=== PATIENT | male | born 1960 | race Caucasian/White ===

== ENCOUNTER 2017-05-15 15:17 | Inpatient (IN) | payer BC, OTHER ==
[~2017-05-15] VITALS: Ht 185.4 cm; Wt 68.0 kg
[2017-05-15] MEDS ORDERED: CLONIDINE HCL 0.1 MG TABLET PO PRN (15:45)
[2017-05-15] MEDS ORDERED: MAG HYDROX/AL HYDROX/SIMETH 30 ML LIQUID UDC PO PRN (15:45)
[2017-05-15] MEDS ORDERED: LORAZEPAM 1 MG TABLET PO PRN (15:45)
[2017-05-15] MEDS ORDERED: MIRALAX 17 GM POWD.PACK PO PRN (15:45)
[2017-05-15] MEDS ORDERED: MAGNESIUM HYDROXIDE 30 ML LIQUID UDC PO PRN (15:45)
[2017-05-15] MEDS ORDERED: IBUPROFEN 600 MG TABLET PO PRN (15:45)
[2017-05-15] MEDS ORDERED: ONDANSETRON 4 MG/2 ML VIAL IM PRN (15:45)
[2017-05-15] MEDS ORDERED: LORAZEPAM 2 MG/1 ML VIAL IM PRN (15:45)
[2017-05-15] MEDS ORDERED: DICYCLOMINE HCL 20 MG TABLET PO PRN (15:45)
[2017-05-15] MEDS ORDERED: LOPERAMIDE HCL 2 MG CAPSULE PO PRN ×2 (15:45)
[2017-05-15] MEDS ORDERED: METHOCARBAMOL 750 MG TABLET PO PRN (15:45)
--- NOTE | 2017-05-15 15:45 | NUR ---
PRE ADMISSION: PATIENT MET IN INTAKE OFFICE SITTING IN WHEEL CHAIR. VITAL SIGNS 146/70, HR 75 O2 97% T 98 PATIENT STATES THAT HE IS HERE TO DETOX FROM HYDROMORPHONE AFTER BATTLING RENAL CANCER FOR THE PAST 3 YEARS HE HAS BECOME DEPENDENT ON IT AND NEEDS TO DETOX. HOME MEDICATION TAKEN FROM PATIENT AND INFORMED PATIENT THAT ANY CONTROLLED SUBSTANCES WOULD BE DESTROYED BY PHARMACY, PATIENT COMPLIANT WITH THIS PROCEDURE AND UNDERSTANDS. WILL CONTINUE ASSESSMENT WHEN PATIENT ARRIVES ON FLOOR.
--- NOTE | 2017-05-15 16:50 | NUR ---
ADMISSION NOTE PATIENT IS A 56 YR OLD MALE ADMITTED TO [facility] ON 05/15/17 FOR A MEDICALLY SUPERVISED WITHDRAWAL FROM OPIATES AND BENZODIAZEPINES. PATIENT IS ALLERGIC TO SULFA, PSEUDOEPHEDRINE AND CANTALOUPE . PATIENT HAS A PAST MEDICAL HISTORY OF METASTATIC RENAL CARCINOMA DIAGNOSED 3 YEARS AGO WITH SURGICAL REMOVAL OF LEFT KIDNEY AND PARTIAL RIGHT PELVIS. PATIENT STATES THAT HE HAS BECOME ADDICTED TO THE HYDROMORPHONE THAT WAS PRESCRIBED TO HIM DURING THIS TIME, PATIENT ALSO SAYS HE HAS BECOME DEPENDENT ON DIAZEPAM AND NEEDS IT TO FALL ASLEEP AT NIGHT. ABUSE HISTORY : ALCOHOL ( WINE ) 1-2 GLASSES / DAY FOR PAST 20 + YEARS DIAZEPAM 2-4 MG PO/DAY FOR PAST 3 YEARS HYDROMORPHONE 24-32 MG PO / DAY FOR PAST 3 YEARS PATIENT APPEARS INTOXICATED UPON ASSESSMENT, HIS SPEECH IS SLURRED AND SEEMS DROWSY, HIS MOOD IS ANXIOUS AND FLAT. ADMITTING COWS 8 AND CIWA 10. PATIENT STATES " I WANT TO TRY TO CONTROL THE AMOUNT OF PAIN MEDS I TAKE OR ELIMINATE THEM ALTOGETHER ". THIS IS THE PATIENTS FIRST TIME IN TREATMENT. HE HAS NO HISTORY OF SEIZURES BUT DOES HAVE A HISTORY OF ACCIDENTAL OVERDOSES. HE HAS NO HISTORY OF SI/HI WILL CONTINUE TO FOLLOW MD PLAN OF CARE.
[2017-05-15 18:36] LABS: ALANINE AMINOTRANSFERASE 31 U/L (16-63); ALKALINE PHOSPHATASE 73 U/L (50-136); ASPARTATE AMINOTRANSFERASE 33 U/L (15-37); BILIRUBIN,TOTAL 0.3 mg/dL (0.2-1.0); CARBON DIOXIDE 28 mmol/L (21-32); CHLORIDE 103 mmol/L (98-107); GLUCOSE 119 mg/dL (74-106); MAGNESIUM 1.9 mg/dL (1.8-2.4); TOTAL PROTEIN, SERUM 6.9 g/dL (6.4-8.2); UREA NITROGEN, BLOOD 12 mg/dL (7-18)
[2017-05-15 18:41] LABS: ETHANOL < 3 MG/DL (0-0)
[2017-05-15] MEDS ORDERED: LACT10SO PO (18:43)
[2017-05-15] MEDS ORDERED: LEVO5TAB29 PO (18:43)
[2017-05-15 18:44] LABS: BASOPHILS % (AUTO) 0.6 % (0.0-2.0); EOSINOPHILS # (AUTO) 0.1 K/uL (0.0-0.7); EOSINOPHILS % (AUTO) 2.2 % (0.0-7.0); HEMATOCRIT 34.4 % (36.7-47.1); HEMOGLOBIN 11.4 g/dL (12.5-16.3); LYMPHOCYTES % (AUTO) 18.5 % (20.5-51.5); MEAN CORPUSCULAR HEMOGLOBIN 29.9 uug (23.8-33.4); MEAN CORPUSCULAR HGB CONC 33 g/dL (32.5-36.3); MONOCYTES # (AUTO) 0.4 K/uL (2.0-10.0); MONOCYTES % (AUTO) 8.2 % (0.0-11.0); NEUTROPHILS # (AUTO) 3.7 K/uL (1.8-8.9); NEUTROPHILS % (AUTO) 70.5 % (38.5-71.5); PLATELET COUNT (AUTO) 306 K/uL (152-348); RED BLOOD CELL COUNT(AUTO) 3.82 MIL/uL (4.06-5.63); WHITE BLOOD COUNT (AUTO) 5.2 K/uL (3.6-10.2)
--- NOTE | 2017-05-15 19:30 | NUR ---
Start of Shift Pt is a 56 y/o admitted 05/15/17 for medically managed withdrawal/detox from Hydromorphone, Diazepam, and ETOH. Pt is found in bed, semi-Fowlers position, eating dinner, appears and acts much older than stated age. Eye contact avoidant, speech unclear at times. On 1:1 observation as fall precaution. Pt with unsteady gait, wheelchair and assist required. Pt fair historian on health status. U/A to be collected p dinner. 2100 meds/PRN's reviewed. Will continue to monitor and promtly attend to all pt needs
--- NOTE | 2017-05-15 19:31 | NUR ---
END OF SHIFT : PATIENT WAS ADMITTED TODAY 05/15/17 FOR A MEDICALLY SUPERVISED WITHDRAWAL FROM ALCOHOL/ BENZOS AND OPIATES. PATIENT HAS A HISTORY OF METASTATIC RENAL CANCER THAT INVOLVED LEFT KIDNEY REMOVAL AND RIGHT PELVIS SURGERY. HE IS HERE HE BECAME ADDICTED TO HYDROMORPHONE THAT HE WAS TAKING TO DEAL WITH THE PAIN. PATIENT HAS UNSTEADY GAIT AND MD ORDERED 1:1 FOR PATIENT SAFETY. URINE SPECIMEN HAS NOT BEEN PROVIDED YET BY PATIENT . PATIENT ARRIVED ON THE UNIT AT 1700, FLUID INTAKE OF 800ML , 0 VOIDS AND 0 BM. ADMITTING COWS 8 AND CIWA 10. WILL ENDORSE TO NIGHT NURSE, FOLLOW MD PLAN OF CARE.
[2017-05-15 20:00] VITALS: BP 126/73
[2017-05-15 20:54] LABS: *AMPHETAMINE, URINE NEGATIVE (NEGATIVE); *BARBITURATE, URINE NEGATIVE (NEGATIVE); *CANNABINOID, URINE NEGATIVE (NEGATIVE); *COCCAINE, URINE NEGATIVE (NEGATIVE); *OPIATE, URINE POSITIVE (NEGATIVE); *PHENCYCLIDINE SCREEN,URINE NEGATIVE (NEGATIVE)
[2017-05-15] MEDS ORDERED: ENOXAPARIN SODIUM 40 MG/0.4 ML DISP.SYRIN SQ SCH (21:00)
[2017-05-15] MEDS: ENOXAPARIN 60 MG/0.6 ML SQ SCH ×2 (21:00→21:12)
[2017-05-15] MEDS ORDERED: BUPRENORPHINE HCL 2 MG TAB.SUBL SL PRN (21:00)
--- NOTE | 2017-05-15 21:00 | NUR ---
Lovenox 60mg SQ non adminter Lovenox 60mg SQ not administered due to syringe malfunction. Pharmacy/Dough Brake Machine Operator contacted by CN and Lovenox 30mg SQ x 2 ordered and given as replacement.
[2017-05-15] MEDS: GABAPENTIN 300 MG CAPSULE PO SCH (21:14)
[2017-05-15] MEDS: KETOROLAC TROMETHAMINE 30 MG INJ IM PRN (21:14)
[2017-05-15] MEDS: LORAZEPAM 1 MG TABLET PO PRN (21:14)
--- NOTE | 2017-05-15 21:14 | NUR ---
PRN Meds Ativan 1mg PO for CIWA 10, and Toradol 30mg IM given for 7/10 mouth pain. Will continue to monitor and reassess in 1 hour, promptly attending to all needs.
[2017-05-15] MEDS ORDERED: ENOXAPARIN SODIUM 60 MG/0.6 ML DISP.SYRIN SQ ONE (21:30)
[2017-05-15] MEDS ORDERED: ENOXAPARIN SODIUM 30 MG/0.3 ML DISP.SYRIN SQ ONE (21:30)
--- NOTE | 2017-05-15 22:14 | NUR ---
PRN Med Reassessment Ativan 1mg PO for CIWA 10, and Toradol 30mg IM given 2113 for left lower mouth pain. Pt found sleeping, RR 14 even and non labored. Meds effective. Will continue to monitor and promptly attend to all needs
--- NOTE | 2017-05-16 | NUR ---
VS's/COWS/CIWA Deferred VS's and COWS/CIWA deferred r/t pt sleeping/refused. RR 14 even and non labored. Will continue to monitor and promptly attend to all needs.
[2017-05-16 04:00] VITALS: BP 126/73
[2017-05-16] MEDS: ACETAMINOPHEN 325 MG TABLET PO PRN ×2 (04:31→08:44)
--- NOTE | 2017-05-16 04:31 | NUR ---
PRN Med Tylenol 650mg PO given for leg pain/cramps. Will continue to monitor pt and reassess in 1 hour, promptly attending to all pt needs
--- NOTE | 2017-05-16 05:31 | NUR ---
PRN Med Reassessment Tylenol 650mg PO given for mouth and leg pain ineffective per pt. Administering other pain med
[2017-05-16] MEDS: KETOROLAC TROMETHAMINE 30 MG INJ IM PRN ×2 (05:35→11:29)
--- NOTE | 2017-05-16 05:35 | NUR ---
PRN Med Toradol 30mg IM to left deltoid for leg pain, 5/10, and right lower mouth pain 9/10. Will continue to monitor pt and reassess in 30 minutes, promptly attending to all needs
--- NOTE | 2017-05-16 06:05 | NUR ---
PRN Med Reassessment Toradol 30mg IM effective. Pt found sleeping, RR 14, even and non-labored. Will continue to monitor and give endorsement to oncoming day nurse, promptly attending to all needs.
--- NOTE | 2017-05-16 06:55 | NUR ---
End of Shift4 Pt is a 56 y/o admitted 05/15/17 for medically managed withdrawal/detox from Hydromorphone, Diazepam, and ETOH. PRN's for shift include Ativan 1mg PO for CIWA of 10, and Toradol 30mg IM to R deltoid for Right lower mouth pain. Pt requesting pain med at 0430 for leg pain, given Tylenol 650mg PO. Tylenol ineffective, Toradol 30mg IM given 0535 for leg pain 5/10, and right lower mouth pain 9/10. Pt slept for 8 hours, with 1096 mls intake, 2 voids, and 0 BM's. Will continue to monitor pt until morning endorsement, promptly attending to all needs.
--- NOTE | 2017-05-16 07:10 | NUR ---
START OF SHIFT PATIENT IS A 56 YR OLD MALE ADMITTED TO [facility] ON 05/15/17 FOR A MEDICALLY SUPERVISED DETOXIFICATION FROM ALCOHOL, BENZODIAZEPINES AND OPIATES. PATIENT IS ON A 1:1 FOR UNSTEADY GAIT AND SAFETY. PRN MEDS REQUIRED ON PM SHIFT : TYLENOL, TORADOL X 2 AND ATIVAN. LAST COWS 10 AND CIWA 10. PATIENT IS ASLEEP IN BED AT THIS TIME WITH SITTER AT BEDSIDE, BREATHING EVEN AND UNLABORED WITH BED IN LOW LOCKED POSITION WITH SIDE RAILS UP X 2. WILL CONTINUE TO FOLLOW MD PLAN OF CARE.
[2017-05-16 08:00] VITALS: BP 128/83
[2017-05-16] MEDS: LORAZEPAM 1 MG TABLET PO PRN ×3 (08:25→20:46)
[2017-05-16] MEDS: MULTIVITAMINS,THERAPEUTIC TABLET PO SCH (08:25)
[2017-05-16] MEDS: THIAMINE HCL 100 MG TABLET PO SCH (08:25)
--- NOTE | 2017-05-16 08:25 | NUR ---
PRN ATIVAN 1 MG PO GIVEN FOR CIWA 11 AND ANXIETY, WILL REASSESS
[2017-05-16] MEDS: FOLIC ACID 1 MG TABLET PO SCH (08:26)
[2017-05-16] MEDS: GABAPENTIN 300 MG CAPSULE PO SCH ×3 (08:26→20:46)
--- NOTE | 2017-05-16 08:45 | NUR ---
TUBERCULIN SKIN TEST PLACED LEFT FOREARM
--- NOTE | 2017-05-16 08:45 | NUR ---
PRN TYLENOL TYLENOL 650MG PO GIVEN FOR PATIENTS COMPLAINTS OF ORAL PAIN 07/18, WILL CONTINUE TO MONITOR
[2017-05-16] MEDS ORDERED: CABOZANTINIB 60 MG PO SCH (09:00)
[2017-05-16] MEDS ORDERED: TUBERCULIN,PURIF.PROT.DERIV. 5 TU/0.1 ML TEST ID ONE (09:00)
[2017-05-16] MEDS ORDERED: BUPRENORPHINE HCL 2 MG TAB.SUBL SL SCH (09:00)
--- NOTE | 2017-05-16 09:25 | NUR ---
PRN ATIVAN 1MG EFFECTIVE, CIWA DECREASED FROM 11 TO 7
--- NOTE | 2017-05-16 09:45 | NUR ---
REASSESS PRN TYLENOL TYLENOL EFFECTIVE FOR ORAL PAIN. PAIN NOW 3/10
--- NOTE | 2017-05-16 11:30 | NUR ---
TORADOL PRN TORADOL 30MG IM GIVEN IN RIGHT DELTOID FOR PAIN 09/17, WILL REASSESS
[2017-05-16 12:00] VITALS: BP 88/56
--- NOTE | 2017-05-16 12:30 | NUR ---
PRN REASSESS TORADOL 30MG IM EFFECTIVE , PT STATES PAIN LEVEL IS 3/10, CONTINUE TO MONITOR
[2017-05-16] MEDS: BUPRENORPHINE HCL 2 MG TAB.SUBL SL SCH ×2 (14:19→20:49)
[2017-05-16] MEDS: ONDANSETRON ODT 4 MG TAB.RAPDIS SL PRN (14:33)
--- NOTE | 2017-05-16 14:33 | NUR ---
PRN ZOFRAN ZOFRAN 4MG SL GIVEN FOR EPISODE OF VOMITING, WILL MONITOR FOR EFFECTIVENESS
--- NOTE | 2017-05-16 15:33 | NUR ---
PRN REASSESS ZOFRAN EFFECTIVE N/V IMPROVED
[2017-05-16 16:46] VITALS: BP 125/65
--- NOTE | 2017-05-16 18:30 | NUR ---
PRN ATIVAN ATIVAN 1MG PO GIVEN FOR CIWA 11 AND PT REPORTS OF INCREASED ANXIETY, WILL CONTINUE TO MONITOR
--- NOTE | 2017-05-16 18:56 | NUR ---
END OF SHIFT : PATIENT WAS ADMITTED TO [facility] ON 05/15/17 FOR A MEDICALLY SUPERVISED WITHDRAWAL FROM ALCOHOL/ BENZOS AND OPIATES. PATIENT HAS A HISTORY OF METASTATIC RENAL CANCER THAT INVOLVED LEFT KIDNEY REMOVAL AND RIGHT PELVIS SURGERY. PATIENT HAS COLON 4 EPISODES OF VOMITING TODAY WHICH PATIENT STATES HAPPENS SOMETIMES WHEN HE TAKES HIS ORAL CHEMOTHERAPY MEDICATION AFTER EATING, CHANGED SCHEDULE OF MEDICATION TO 0600., ZOFRAN WAS SOMEWHAT EFFECTIVE. PRN ATIVAN X 2, TYLENOL AND TORADOL GIVEN FOR RIGHT JAW/TOOTH PAIN. PATIENTS WITHDRAWAL SYMPTOMS INCLUDE : FINE TREMORS,EMESIS/NAUSEA, DROWSINESS, RESTLESS LEGS AND INCREASED ANXIETY. PATIENT WAS SEEN BY PT TODAY FOR EXERCISES TO HELP MAINTAIN MUSCLE MASS/STRENGTH. PATIENT IS ON A SOFT DIET WITH BOOST SUPPLEMENTS. PATIENT REMAINS ON A 1:1 FOR SAFETY/UNSTEADY GAIT AND MD ORDER TO USE WHEELCHAIR FOR PATIO TRIPS. PATIENT HAD A FLUID INTAKE OF 2100 ML, 6 VOIDS AND 0 BM. LAST COWS 10 AND CIWA 11 @ 1800. CONTINUE TO FOLLOW MD PLAN OF CARE.WILL ENDORSE TO TRAFFIC ATTENDANT
--- NOTE | 2017-05-16 19:30 | NUR ---
Start of Shift Pt is a 56 y/o male admitted 05/15/17 for medically managed withdrawal/detox from opiates, benzodiazapines, and ETOH. Pt is completing 1st day of Subutex taper. Pt is found sitting in semi-fowlers in bed, appearing and seeming much older than stated age, eating snack. Pt on 1:1 with sitter because of unsteady gait/fall risk. Pt cooperative, alert and oriented x 4. No c/o pain or discomfort, requests colace for constipation. Earlier reports of N&V, no current c/o at present. Evening meds and PRN's reviewed. Will continue to monitor and promptly attend to all patient needs.
[2017-05-16] MEDS ORDERED: SIMETHICONE 80 MG TAB.CHEW PO PRN (19:45)
[2017-05-16] MEDS ORDERED: BENZOCAINE/MENTH/CETYLPYRD LOZENGE MM PRN (19:45)
[2017-05-16 20:00] VITALS: BP 113/80
[2017-05-16] MEDS: LACTOBACILLUS RHAMNOSUS GG 1 EACH CAPSULE PO SCH (20:46)
[2017-05-16] MEDS: DOCUSATE SODIUM 250 MG CAPSULE PO PRN (20:46)
--- NOTE | 2017-05-16 20:46 | NUR ---
PRN Meds Ativan 1mg PO for CIWA 12, and Colace 250mg PO for constipation given. Will continue to monitor patient, reassessing in 1 hour, and promptly attend to all patient needs.
[2017-05-16] MEDS: ENOXAPARIN 60 MG/0.6 ML SQ SCH (20:50)
[2017-05-16] MEDS ORDERED: ENOXAPARIN SODIUM 60 MG/0.6 ML DISP.SYRIN SQ SCH (21:00)
--- NOTE | 2017-05-16 21:46 | NUR ---
PRN med Reassessment Ativan 1mg PO and Colace 250mg PO for constipation given 1 hour prior. Pt sleeping, RR 14, even and non-labored. Ativan effective. Will continue to monitor pt, promptly attending to all needs
[2017-05-16] MEDS ORDERED: AMOXICILLIN-CLAVUL 500-125MG TABLET ONE (22:50)
[2017-05-16] MEDS: AMOXICILLIN-CLAVUL 500-125MG TABLET PO SCH (22:56)
--- NOTE | 2017-05-17 | NUR ---
VS's COWS/CIWA VS's and COWS/CIWA deferred r/t pt refusal/pt sleeping. RR 14, even and nonlabored. Will continue to monitor and promptly attend to all patient needs.
--- NOTE | 2017-05-17 04:00 | NUR ---
VS's COWS/CIWA VS's and COWS/CIWA deferred r/t pt refusal/pt sleeping. RR 14, even and nonlabored. Will continue to monitor and promptly attend to all patient needs.
[2017-05-17] MEDS: CABOZANTINIB 60 MG PO SCH (05:30)
[2017-05-17 05:37] VITALS: BP 120/72
--- NOTE | 2017-05-17 06:48 | NUR ---
End of Shift Pt is a 56 y/o male admitted 05/15/17 for medically managed withdrawal/detox from opiates, benzodiazapines, and ETOH. Pt is beginning 2nd day of Subutex taper. PRN'S for evening include Ativan 1mg PO and Colace 250 mg PO. Scheduled chemo at 0530, VS's and COWS/CIWA performed. Pt out of bed, standing, walking and in wheelchair for out of room activity. Pt slept for 8 hours, with 487 mls intake, 2 voids and 0 BM's. Will continue to monitor patient, giving endorsement to oncoming day nurse, promptly attending to all patient needs
--- NOTE | 2017-05-17 07:10 | NUR ---
PATIENT IS A 56 YR OLD MALE ADMITTED TO [facility] ON 05/15/17 FOR A MEDICALLY SUPERVISED DETOXIFICATION FROM ALCOHOL, BENZODIAZEPINES AND OPIATES. PATIENT IS ON A 1:1 FOR UNSTEADY GAIT AND SAFETY. PRN MEDS REQUIRED ON PM SHIFT : COLACE AND ATIVAN. LAST COWS 9 AND CIWA 8 @ 0530. PATIENT IS SITTING IN CHAIR AT THIS TIME DOING HIS LEG/CIRCULATION EXERCISES THAT WERE PROVIDED BY PT YESTERDAY. PATIENT SLEPT FOR 8 HOURS LAST NIGHT. WILL CONTINUE TO FOLLOW MD PLAN OF CARE.
[2017-05-17 08:00] VITALS: BP 129/84
[2017-05-17] MEDS ORDERED: BUPRENORPHINE HCL 2 MG TAB.SUBL SL SCH ×2 (09:00)
--- NOTE | 2017-05-17 09:24 | NUR ---
PRN ATIVAN 1MG ATIVAN PO GIVEN FOR ANXIETY/WITHDRAWAL SYMPTOMS CIWA 11
--- NOTE | 2017-05-17 09:30 | NUR ---
PRN MEDS PRN TYLENOL 650MG PO, SIMETHICONE 80MG PO, AMBESOL AND CEPACOL THROAT LOZENGE GIVEN FOR C/O MOUTH DISCOMFORT AND GAS
[2017-05-17] MEDS: AMOXICILLIN-CLAVUL 500-125MG TABLET PO SCH ×2 (09:33→20:29)
[2017-05-17] MEDS: GABAPENTIN 300 MG CAPSULE PO SCH ×2 (09:34→14:45)
[2017-05-17] MEDS: DOCUSATE SODIUM 250 MG CAPSULE PO PRN (09:34)
[2017-05-17] MEDS: LACTOBACILLUS RHAMNOSUS GG 1 EACH CAPSULE PO SCH ×2 (09:34→20:32)
[2017-05-17] MEDS: FOLIC ACID 1 MG TABLET PO SCH (09:34)
[2017-05-17] MEDS: LORAZEPAM 1 MG TABLET PO PRN ×2 (09:34→20:33)
[2017-05-17] MEDS: ACETAMINOPHEN 325 MG TABLET PO PRN (09:34)
[2017-05-17] MEDS: THIAMINE HCL 100 MG TABLET PO SCH (09:34)
[2017-05-17] MEDS: MULTIVITAMINS,THERAPEUTIC TABLET PO SCH (09:34)
[2017-05-17] MEDS: BENZOCAINE ORAL CARE 12 ML BOTTLE MM PRN (09:35)
--- NOTE | 2017-05-17 10:24 | NUR ---
ATIVAN REASSESS ATIVAN EFFECTIVE, PT RESTING IN BED WITH EYES CLOSED , CIWA 8. SITTER AT BEDSIDE
--- NOTE | 2017-05-17 10:30 | NUR ---
PRN REASSESS PATIENT STATES THE AMBESOL AND CEPACOL HAVE HELPED THE ORAL PAIN HE WAS HAVING ALSO TYLENOL WAS EFFECTIVE FOR PAIN RELIEF
[2017-05-17 12:00] VITALS: BP 106/60
[2017-05-17] MEDS: BUPRENORPHINE HCL 2 MG TAB.SUBL SL SCH ×2 (14:45→20:33)
[2017-05-17] MEDS: CHLORHEXIDINE GLUCONATE 15 ML MOUTHWASH MM PRN (14:46)
[2017-05-17 17:00] VITALS: BP 133/77
--- NOTE | 2017-05-17 18:46 | NUR ---
END OF SHIFT : PATIENT WAS ADMITTED TO [facility] ON 05/15/17 FOR A MEDICALLY SUPERVISED WITHDRAWAL FROM ALCOHOL/ BENZOS AND OPIATES. PATIENT HAS A HISTORY OF METASTATIC RENAL CANCER THAT INVOLVED LEFT KIDNEY REMOVAL AND RIGHT PELVIS SURGERY. PRN MEDICATION GIVEN ON THIS SHIFT : TYLENOL GIVEN FOR RIGHT JAW/TOOTH PAIN AND AMBESOL AND IS ALSO ON AUGMENTIN ANTIBIOTIC FOR POSSIBLE TOOTH INFECTION , ATIVAN 1MG X 1, PERIDEX MOUTH WASH, SIMETHICONE FOR GAS RELIEF AND CEPACOL THROAT LOZENGE. PATIENTS WITHDRAWAL SYMPTOMS INCLUDE : FINE TREMORS, NAUSEA, DROWSINESS, RESTLESS LEGS AND ANXIETY. PATIENT REMAINS ON A 1:1 FOR SAFETY/UNSTEADY GAIT AND MD ORDER TO USE WHEELCHAIR FOR PATIO TRIPS. PATIENT IS ON A SOFT DIET. PATIENT HAD A FLUID INTAKE OF 1700 ML, 4 VOIDS AND 0 BM. LAST COWS 8 AND CIWA 8 @16 00. CONTINUE TO FOLLOW MD PLAN OF CARE.WILL ENDORSE TO ICE CREAM MAKER.
--- NOTE | 2017-05-17 19:30 | NUR ---
Start of Shift Pt is a 56 y/o male, appearing and acting/sounding much older than stated age, admitted 05/15/17 for medically managed withdrawal/detox from opiates, diazepam and ETOH. Pt found in wheelchair returning to room with 1:1 sitter (for unsteady gait) appearing fatigued. C/o mouth pain 5/10, requesting "the shot" (Toradol) with 2100 meds to assist with rest. Conversation with by day nurse occurring during day shift. Will administer evening meds with pain med, continue to monitor, promptly attending to all needs.
[2017-05-17 20:00] VITALS: BP 117/87
[2017-05-17] MEDS: KETOROLAC TROMETHAMINE 30 MG INJ IM PRN (20:29)
--- NOTE | 2017-05-17 20:29 | NUR ---
PRN Meds Ativan 1mg PO for CIWA of 8, and Toradol 30mg IM given for right mouth, leg, and generalized pain 5-8/10. Will continue to monitor, reassess in 30 minutes to 1hour, promptly attending to all pt needs
[2017-05-17] MEDS: BACLOFEN 10 MG TABLET PO SCH (20:33)
--- NOTE | 2017-05-17 20:59 | NUR ---
Toradol IM Reassessment Toradol 30mg IM given 30 minutes prior for R mouth, back, leg pain 5-8/10. Pt report pain as "much better" reduced to 2-3/10. med effective. Will continue to monitor, promptly attending to all pt needs
[2017-05-17] MEDS ORDERED: GABAPENTIN 300 MG CAPSULE PO SCH (21:00)
--- NOTE | 2017-05-17 21:29 | NUR ---
Med Reassessment Ativan 1mg PO given 1 hour prior for CIWA 9, anxiety, agitation. Pt found sleeping, RR 14, even and nonlabored. Will continue to monitor, promptly attending to all pt needs
--- NOTE | 2017-05-18 | NUR ---
VS's COWS/CIWA Deferred Midnight vs's and COWS/CIWA deferred r/t patient refusal/sleeping. RR 14, even and non-labored. Will continue to monitor and promptly meet all needs
[2017-05-18 03:08] LABS: HEPATITIS B SURFACE AG Negative (Negative)
--- NOTE | 2017-05-18 04:00 | NUR ---
VS's COWS/CIWA Deferred Midnight vs's and COWS/CIWA deferred r/t patient refusal/sleeping. RR 14, even and non-labored. Will continue to monitor and promptly meet all needs
[2017-05-18] MEDS: CABOZANTINIB 60 MG PO SCH (05:56)
--- NOTE | 2017-05-18 06:48 | NUR ---
Start of Shift Pt is a 56 y/o male, appearing and acting/sounding much older than stated age, admitted 05/15/17 for medically managed withdrawal/detox from opiates, diazepam and ETOH. PRN's for evening include Ativan 1mg PO, and Toradol 30mg IM, 2000 COWS/CIWA 10/16. PRN in morning was Mylanta for indigestion. Pt slept for 8 hours, with 1092 mls intake, 3 voids and 0 BM's. Will continue to monitor, promptly attending to all needs.
--- NOTE | 2017-05-18 07:05 | NUR ---
Start of Shift Electro Plater received report on 56 year old male admitted to [facility] on 05/15/17 for medical management of Benzodiazepine, Opiate and ETOH withdrawals. Pt reports allergies to Sulfa, Psuedoephedrine and cantaloupe. Pt eats a soft diet and is a full code. Pt has a PMH of Renal Cancer, including a Nephrectomy of the left kidney and a partial pelvis resection. Pt reports a PPH of anxiety. Pt was administered Ativan(anxiety), Toradol(pain) and Mylanta(heartburn) on NOC, per report. Pt currently on a Subutex taper, tolerating well with last COWS 9 and CIWA 8 at 1999, per NOC report. Electro Plater encounters pt in his room resting with staff at bedside as 1:1 d/t unsteady gait. Pt does use wheelchair with staff assistance for transitioning. Pt is A/O x4 and able to make needs known. Clear of thought and speech. Calm and cooperative with no complaints at this time. Bed in low position, wheels locked and side rails up x2. Will continue to monitor, support and encourage according to plan of care.
[2017-05-18 08:45] VITALS: BP 134/77
[2017-05-18] MEDS ORDERED: BUPRENORPHINE HCL 2 MG TAB.SUBL SL SCH ×2 (09:00→15:00)
[2017-05-18] MEDS: LACTOBACILLUS RHAMNOSUS GG 1 EACH CAPSULE PO SCH ×2 (09:05→20:16)
[2017-05-18] MEDS: AMOXICILLIN-CLAVUL 500-125MG TABLET PO SCH ×2 (09:05→20:14)
[2017-05-18] MEDS: BUPRENORPHINE HCL 2 MG TAB.SUBL SL SCH ×3 (09:05→20:17)
[2017-05-18] MEDS: FOLIC ACID 1 MG TABLET PO SCH (09:05)
[2017-05-18] MEDS: GABAPENTIN 300 MG CAPSULE PO SCH ×3 (09:06→20:16)
[2017-05-18] MEDS: MULTIVITAMINS,THERAPEUTIC TABLET PO SCH (09:06)
[2017-05-18] MEDS: BACLOFEN 10 MG TABLET PO SCH ×3 (09:06→20:14)
[2017-05-18] MEDS: THIAMINE HCL 100 MG TABLET PO SCH (09:06)
--- NOTE | 2017-05-18 09:06 | NUR ---
PRN Motrin Pt complain of pain in hips, knees, back and mouth. Requests Motrin for pain relief. Administered per order, with pt tolerating well. Will continue to monitor, support and encourage according to plan of care
--- NOTE | 2017-05-18 10:06 | NUR ---
PRN Re-Assessment Pt states, " I feel a bit better." Will continue to monitor, support and encourage according to plan of care.
[2017-05-18] MEDS ORDERED: NORMAL SALINE NASAL 45 ML BOTTLE NS PRN (10:45)
--- NOTE | 2017-05-18 11:18 | NUR ---
Endorsement Machine Brusher provided report on 56 year old male admitted to [facility] on 05/15/17 for medical management of Benzodiazepine, Opiate and ETOH withdrawals. Pt reports allergies to Sulfa, Psuedoephedrine and cantaloupe. Pt eats a soft diet and is a full code. Pt has a PMH of Renal Cancer, including a Nephrectomy of the left kidney and a partial pelvis resection. Pt reports a PPH of anxiety. Pt was administered Ativan(anxiety), Toradol(pain) and Mylanta(heartburn) on NOC, per report. Pt currently on a Subutex taper, tolerating well with last COWS 9 and CIWA 6 at 0800. Pt is A/O x4 and able to make needs known. Clear of thought and speech. Calm and cooperative with no complaints at this time. Bed in low position, wheels locked and side rails up x2. Will continue to monitor, support and encourage according to plan of care.
--- NOTE | 2017-05-18 11:20 | NUR ---
ASSUMED CARE OF PT. HE IS A/O X 4.
[2017-05-18 12:00] VITALS: BP 136/78
--- NOTE | 2017-05-18 12:16 | NUR ---
PT HAD AN EPISODE OF EPISTAXIS. HAD PT SIT UP WITH HEAD FORWARD APPLYING ICE AND PRESSURE. BLEEDING STOPPED. PT IS A/O X 4 WITH NO OTHER SYMPTOMS AT THIS TIME. VS WNL.
[2017-05-18] MEDS: DICYCLOMINE HCL 20 MG TABLET PO SCH ×2 (14:09→20:15)
--- NOTE | 2017-05-18 14:30 | NUR ---
PT IS HAVING ANOTHER EPISODE OF EPISTAXIS WITH A MODERATE AMOUNT OF RED DRAINAGE THAT IS LASTING MORE THAN 30 MINUTES.PRESSURE BEING APPLIED TO NASAL BRIDGE. MD MADE AWARE. NEW ORDER FOR OXYMETAZOLINE NASAL SPRAY, LABS AND AN HEMATOLOGY CONSULT. ALSO NEW ORDER TO DC LOVENOX. WILL CONTINUE TO MONITOR CLOSELY. Addendum: 05/18/17 at 1511 by KE CARPIO RN BP 122/64 P 75 T98.4 R 18 O2 SAT 99% Addendum: 05/18/17 at 1804 by KE CARPIO RN LOVENOX NOT STOPPED BUT CHANGED TO 40 MG DAILY STARTING TOMORROW AM.
[2017-05-18] MEDS: OXYMETAZOLINE NASAL 0.05% 15 ML SPRAY NS PRN (14:49)
--- NOTE | 2017-05-18 15:30 | NUR ---
PT'S NOSE STOPPED BLEEDING. ENCOURAGED HIM TO NOT MOVE ABOUT TOO MUCH . 1: 1 SITTER AT BEDSIDE.. WILL CONTINUE TO MONITOR AND OFFER SUPPORT.
[2017-05-18 15:48] LABS: BASOPHILS % (AUTO) 0.5 % (0.0-2.0); EOSINOPHILS # (AUTO) 0.1 K/uL (0.0-0.7); EOSINOPHILS % (AUTO) 1.9 % (0.0-7.0); HEMATOCRIT 34.5 % (36.7-47.1); HEMOGLOBIN 11.6 g/dL (12.5-16.3); LYMPHOCYTES # (AUTO) 0.9 K/uL (20.0-40.0); LYMPHOCYTES % (AUTO) 14.3 % (20.5-51.5); MEAN CORPUSCULAR HEMOGLOBIN 30.1 uug (23.8-33.4); MEAN CORPUSCULAR HGB CONC 34 g/dL (32.5-36.3); MEAN CORPUSCULAR VOLUME 89.6 fL (73.0-96.2); MONOCYTES # (AUTO) 0.4 K/uL (2.0-10.0); MONOCYTES % (AUTO) 6.4 % (0.0-11.0); NEUTROPHILS # (AUTO) 4.9 K/uL (1.8-8.9); NEUTROPHILS % (AUTO) 76.9 % (38.5-71.5); PLATELET COUNT (AUTO) 300 K/uL (152-348); RED BLOOD CELL COUNT(AUTO) 3.85 MIL/uL (4.06-5.63); WHITE BLOOD COUNT (AUTO) 6.4 K/uL (3.6-10.2)
[2017-05-18 16:00] VITALS: BP 115/74
--- NOTE | 2017-05-18 18:46 | NUR ---
END OF SHIFT: PT CONTINUES ON SUBUTEX TAPER TO MANAGE S/S OF W/D WHICH INCLUDE BODY ACHES,ANXIETY AND RESTLESSNESS. LAST COWS 6 CIWA 6. HE HAD EPISTAXIS X 2 TODAY MD MADE AWARE. NEW ORDER FOR AFRIN AND LABS DRAWN. LOVENOX ORDER ALSO CHANGED. VS WNL . PRN AFRIN GIVEN ALONG WITH ICE PACKS. PT APPLIED PRESSURE TO BRIDGE OF NOSE AND BLEEDING HAS STOPPED. WILL PASS SHIFT REPORT TO ONCOMING NIGHT NURSE.
--- NOTE | 2017-05-18 19:30 | NUR ---
START OF SHIFT Received 56 year old male patient admitted on 05/15/17 for Hydromorphone, Diazepam, and ETOH withdrawal. Pt is alert and oriented x4. He is noted to be anxious, restless, and agitated. He complains of muscle aches. Pt with PMHx of renal cancer stage IV. He is on 1:1 for unsteady gait and ambulates via wheelchair. Per endorsement pt had episode of epistaxis for over one hour. Pt was given PRN Afrin. STAT labs and hematology consult was ordered. COWS:6, CIWA:6 at 1600. Breathing is even and unlabored, safety measures in place. Will continue to monitor.
--- NOTE | 2017-05-18 19:50 | NUR ---
NURSING NOTE Pt received hematology consult from Dr. Daksha Landry. New order for CT chest angiogram ordered for tomorrow morning. New order noted and carried out.
[2017-05-18 20:00] VITALS: BP 137/61
[2017-05-18] MEDS ORDERED: FLUTICASONE PROP NASAL SPRAY 16 GM BOTTLE NS SCH (21:00)
--- NOTE | 2017-05-18 22:30 | NUR ---
IV INSERTION 20 gauge IV inserted to right AC, patent and flushing well. Will monitor.
[2017-05-19] VITALS: BP 124/74
[2017-05-19] MEDS: KETOROLAC TROMETHAMINE 30 MG INJ IM PRN ×2 (00:18→08:56)
[2017-05-19] MEDS: METHYL SALICYLATE/MENTHOL CREAM 28 GM TUBE TOP PRN (00:18)
--- NOTE | 2017-05-19 00:18 | NUR ---
PRN TORADOL/BENGAY Pt complains of 8/10 right lower leg pain. PRN Toradol and Bengay administered as ordered. Safety measures in place. Will monitor effectiveness.
--- NOTE | 2017-05-19 00:50 | NUR ---
PRN REASSESSMENT PRN medication effective. Pt lying in bed with eyes closed noted to be asleep. Breathing is even and unlabored, safety measures in place. Will continue to monitor.
--- NOTE | 2017-05-19 04:00 | NUR ---
VITALS REFUSED/COWS, CIWA DEFERRED 0400 vitals refused. COWS and CIWA deferred d/t pt lying in bed with eyes closed noted to be asleep. Breathing is even and unlabored, safety measures in place. Will continue to monitor.
[2017-05-19] MEDS: CABOZANTINIB 60 MG PO SCH (06:05)
--- NOTE | 2017-05-19 07:09 | NUR ---
END OF SHIFT Pt is a 56 year old male patient admitted on 05/15/17 for Hydromorphone, Diazepam, and ETOH withdrawal. Pt remains alert and oriented x4. He was noted to be anxious, restless, and agitated during the shift and had complaints of right lower leg pain. At 0018 he received PRN Toradol and Bengay. At 0620 he received PRN Imodium. He slept a total of 5 hrs, Intake: 950mL, Void: x2, BM: x1, COWS:6, CIWA:5 at 0000. He remains on 1:1 for unsteady gait and ambulates via wheelchair. He had a hematology consult last night with Dr. Landry. He is scheduled for a CT chest angiogram today. Breathing is even and unlabored, safety measures in place. Will endorse.
--- NOTE | 2017-05-19 07:10 | NUR ---
Start Of Shift Report received from shift supervisor melting nurse. Pt is a 56 year old male patient admitted on 05/15/17 for Hydromorphone, Diazepam, and ETOH withdrawal. Pts last COWS 6 CIWA 5. Upon assessment pt laying in room watching television, Pt is currently NPO due to a CT chest angiogram procedure. Pt has a 20G IV heplock on right AC. Pt appears disheveled, flushed and odorous, Pts room has clothes thrown on the floor, spilled drinks, and snack wraps. Pts expression is anxious worried with poor eye contact.Pt c/o pain in his legs rating it 6/10. Pt remains on a 1:1 for safety. Pt continues on the 5 day Subutex taper. Pt slept for 5 hours last night. Plan of care reviewed all needs met, all safety measures in place will continue to monitor.
[2017-05-19 08:00] VITALS: BP 128/82
[2017-05-19] MEDS: THIAMINE HCL 100 MG TABLET PO SCH (08:53)
[2017-05-19] MEDS: LACTOBACILLUS RHAMNOSUS GG 1 EACH CAPSULE PO SCH ×2 (08:53→21:31)
[2017-05-19] MEDS: GABAPENTIN 300 MG CAPSULE PO SCH ×3 (08:53→21:33)
[2017-05-19] MEDS: BACLOFEN 10 MG TABLET PO SCH ×3 (08:53→21:30)
[2017-05-19] MEDS: DICYCLOMINE HCL 20 MG TABLET PO SCH ×3 (08:53→21:31)
[2017-05-19] MEDS: MULTIVITAMINS,THERAPEUTIC TABLET PO SCH (08:53)
[2017-05-19] MEDS: FOLIC ACID 1 MG TABLET PO SCH (08:53)
[2017-05-19] MEDS: BUPRENORPHINE HCL 2 MG TAB.SUBL SL SCH ×2 (08:54→21:34)
[2017-05-19] MEDS: AMOXICILLIN-CLAVUL 500-125MG TABLET PO SCH ×2 (08:54→21:34)
[2017-05-19] MEDS: ENOXAPARIN SODIUM 40 MG/0.4 ML DISP.SYRIN SQ SCH (08:56)
[2017-05-19] MEDS ORDERED: BUPRENORPHINE HCL 2 MG TAB.SUBL SL SCH (09:00)
[2017-05-19 12:00] VITALS: BP 135/66
[2017-05-19] MEDS ORDERED: HYDR-3895 PO (13:22)
[2017-05-19] MEDS ORDERED: METH-406 PO (13:22)
[2017-05-19] MEDS ORDERED: ENOX40DI SQ (13:22)
[2017-05-19] MEDS ORDERED: CLON0.1T14 PO (13:22)
[2017-05-19] MEDS ORDERED: GABA-534 PO (13:22)
[2017-05-19] MEDS ORDERED: DOCU250C14 PO (13:22)
[2017-05-19] MEDS ORDERED: DICY20TA28 PO (13:22)
[2017-05-19] MEDS ORDERED: IBUP-1955 PO (13:22)
[2017-05-19 16:00] VITALS: BP 134/59
[2017-05-19] MEDS: HYDROXYZINE PAMOATE 25 MG CAPSULE PO PRN (17:05)
--- NOTE | 2017-05-19 18:56 | NUR ---
End Of Shift Report given to overnight stocker nurse, plan of care reviewed, VS monitored closely q 4 hours. Withdrawal symptoms were closely monitored, medications given as scheduled. Initial COWS 8 CIWA 7. Patient encouraged adequate PO fluid intake as tolerated. Patient presented with tremors sweats, and anxiety during the day. Pt received PRN Toradol shot IM for pain and Vistaril 25mg for anxiety, all medications were effective. Last COWS 7 CIWA 7. Per patient, Subutex has been helping him with his withdrawal symptoms. Pt ate all of his meals, attended some groups and activities. Patient encouraged to attend all group therapies/sessions to learn new coping skills to recent relapse, patient denies SI/HI. all safety measures in place, bed in lowest locked position, call light within reach. All needs met and attended.
--- NOTE | 2017-05-19 19:30 | NUR ---
START OF SHIFT Received 56 year old male patient admitted on 05/15/17 for Opiate, Diazepam, and ETOH withdrawal. Pt is alert and oriented x4. Pt noted to be restless, anxious and irritable. Pt noted to be hoarding food in his room. He continues on 1:1 for unsteady gait and safety. He continues on a 5 day Subutex taper and is tolerating well. Per endorsement, pt received angiogram this morning, results negative. He received PRN Vistaril and Toradol. Last COWS:7, CIWA:7 at 1600. Breathing is even and unlabored, safety measures in place. Will monitor.
[2017-05-19 20:00] VITALS: BP 146/79
--- NOTE | 2017-05-19 21:30 | NUR ---
NURSING NOTE Pt with episode of moderate epistaxis. Pressure and ice applied. Educated pt to sit up lean forward while applying pressure to bridge of nose. Will continue to monitor.
--- NOTE | 2017-05-19 22:16 | NUR ---
PRN IMODIUM Pt complains of loose stool/diarrhea. PRN Imodium administered as ordered. Will monitor effectiveness.
[2017-05-19] MEDS: OXYMETAZOLINE NASAL 0.05% 15 ML SPRAY NS PRN (23:31)
--- NOTE | 2017-05-19 23:31 | NUR ---
NURSING NOTE Pt still noted with minimal epistaxis. Ice and pressure still being applied for up to 15 minutes intermittently. MD made aware. PRN Afrin administered for complaints of nasal congestion. Will continue to monitor.
[2017-05-20] VITALS: BP 121/71
--- NOTE | 2017-05-20 | NUR ---
NURSING NOTE Pt's bloody nose stopped bleeding. Encouraged pt to sleep in semi-fowlers position to reduce risk of aspiration. Pt verbalized understanding. 1:1 sitter at bedside for safety. Will continue to monitor.
[2017-05-20] MEDS: ACETAMINOPHEN 325 MG TABLET PO PRN ×2 (00:27→22:35)
--- NOTE | 2017-05-20 00:27 | NUR ---
PRN TYLENOL Pt complains of headache 07/18. PRN Tylenol administered as ordered. Breathing even and unlabored, safety measures in place. Will continue to monitor.
--- NOTE | 2017-05-20 01:27 | NUR ---
PRN TYLENOL REASSESSMENT PRN medication effective. Pt reports decrease in headache 05/18. Safety measures in place. Will monitor.
[2017-05-20] MEDS: CHLORHEXIDINE GLUCONATE 15 ML MOUTHWASH MM PRN ×3 (02:01→20:42)
--- NOTE | 2017-05-20 02:15 | NUR ---
NURSING NOTE Pt complained of nausea and stated " I feel phlegm in the back of my throat" Pt was noted to be dry heaving and coughed up bloody sputum. Pt reported feeling much better. Breathing even and unlabored, safety measures in place. Will continue to monitor.
--- NOTE | 2017-05-20 02:25 | NUR ---
PRN ZOFRAN Pt complains of nausea. PRN Zofran administered as ordered. Will continue to monitor effectiveness.
[2017-05-20] MEDS: ONDANSETRON ODT 4 MG TAB.RAPDIS SL PRN (02:55)
--- NOTE | 2017-05-20 02:55 | NUR ---
PRN ZOFRAN REASSESSMENT PRN Zofran effective. Pt reports decrease in nausea. Will continue to monitor.
[2017-05-20] MEDS: CABOZANTINIB 60 MG PO SCH (06:39)
--- NOTE | 2017-05-20 07:20 | NUR ---
END OF SHIFT Pt is a 56 year old male patient admitted on 05/15/17 for Opiate, Diazepam, and ETOH withdrawal. Pt remains alert and oriented x4. Pt was noted to be restless, anxious and irritable during the shift. He had an episode of epistaxis last night which lasted for approximately 2 hours. Pt was given PRN Afrin. Bleeding stopped. MD was made aware. Pt aslo had episode of dry heaving and coughed up bloody sputum. He received PRN medication sof Imodium, Afrin, Tylenol and Zofran. He continues on 1:1 for unsteady gait and safety. He continues on a 5 day Subutex taper and is tolerating well. He slept a total of 3 hrs, Intake:1296mL Void:x6, BM:x5 Last COWS:7, CIWA:6 at 0000. Breathing is even and unlabored, safety measures in place. Will endorse to AM shift.
--- NOTE | 2017-05-20 07:45 | NUR ---
START OF SHIFT Rcvd endorse from ongoing nurse, client is in room, he is a/o to name, place and situation. He presents with anxious mood, agitated, flat affect, tremors, clammy skin. Client reports generalized body aches, low back pain, abdominal cramps, nausea, decreased appetite, restless legs, and fatigue. VTE 3, client is on Lovenox 40mg SQ. Client has a walker at bedside. Client is on a 1:1 sitter for unsteady gait. Mobilize only via W/C. Encourage client to increase PO fluid as tolerated to facilitate detox. Encourage client to attend group therapy. PRN administered overnight, see eMAR. Client slept 3 hrs. Last COWS 7/CIWA 6@ 2400. Call light within reach.
[2017-05-20 08:00] VITALS: BP 131/77
[2017-05-20] MEDS: MULTIVITAMINS,THERAPEUTIC TABLET PO SCH (08:40)
[2017-05-20] MEDS: GABAPENTIN 300 MG CAPSULE PO SCH ×3 (08:40→20:42)
[2017-05-20] MEDS: BACLOFEN 10 MG TABLET PO SCH ×3 (08:40→20:44)
[2017-05-20] MEDS: THIAMINE HCL 100 MG TABLET PO SCH (08:40)
[2017-05-20] MEDS: LACTOBACILLUS RHAMNOSUS GG 1 EACH CAPSULE PO SCH ×2 (08:40→20:43)
[2017-05-20] MEDS: FOLIC ACID 1 MG TABLET PO SCH (08:41)
[2017-05-20] MEDS: DICYCLOMINE HCL 20 MG TABLET PO SCH ×3 (08:41→20:43)
[2017-05-20] MEDS: AMOXICILLIN-CLAVUL 500-125MG TABLET PO SCH ×2 (08:41→20:43)
[2017-05-20] MEDS: OXYMETAZOLINE NASAL 0.05% 15 ML SPRAY NS PRN (08:42)
--- NOTE | 2017-05-20 08:42 | NUR ---
PRN Afrin Nasal 0.05% administered 1 spray to each nostril for nasal congestion.
[2017-05-20] MEDS: ENOXAPARIN SODIUM 40 MG/0.4 ML DISP.SYRIN SQ SCH (09:00)
[2017-05-20] MEDS ORDERED: BUPRENORPHINE HCL 2 MG TAB.SUBL SL SCH ×2 (09:00)
--- NOTE | 2017-05-20 09:42 | NUR ---
Reassess PRN Afrin Nasal 0.05%, client verbalizes relief from nasal congestion.
--- NOTE | 2017-05-20 09:48 | NUR ---
PRN Peridex 15mL mouth wash for gingivitis, client swished and spit
--- NOTE | 2017-05-20 10:48 | NUR ---
Reassess PRN Peridex 15mL mouth wash, effective.
[2017-05-20] MEDS: NEOMY/BACITRAC/POLYMI OINT 28.35 GM TUBE TOP SCH ×2 (12:22→17:04)
[2017-05-20 12:38] VITALS: BP 129/78
[2017-05-20] MEDS: BENZOCAINE ORAL CARE 12 ML BOTTLE MM PRN (13:36)
[2017-05-20] MEDS: KETOROLAC TROMETHAMINE 30 MG INJ IM PRN ×2 (13:36→20:42)
--- NOTE | 2017-05-20 13:36 | NUR ---
PRN Anbesol for dental pain, Toradol 20mg IM administered to R deltoid for pain 8/10 on R side of face.
--- NOTE | 2017-05-20 14:06 | NUR ---
Reassess PRN Toradol 30mg IM, client verbalized relief from pain on R side of face, 2/10, but tolerable.
--- NOTE | 2017-05-20 14:36 | NUR ---
Reassess PRN Anbesol for dental pain, client reports relief from dental pain on R side of face 0/10.
[2017-05-20 16:00] VITALS: BP 128/75
--- NOTE | 2017-05-20 18:56 | NUR ---
END OF SHIFT Endorse to incoming nurse, client is in room, he is a/o to name, place and situation. He continues to present with anxious mood, agitated, flat affect, clammy skin, low back pain, abdominal cramps, decreased appetite, restless legs, and fatigue. Client is on a 1:1 sitter for unsteady gait. Mobilize only via W/C. Adequate PO fluid intake 1150mL, void x 4. Consumes 50% of meals. Client was compliant with 2/3 of group therapy. PRN administered and noted per protocol, see eMAR. Last COWS 5/CIWA 5 @ 1600. Call light within reach.
--- NOTE | 2017-05-20 19:30 | NUR ---
Start of Shift Pt is a 56 y/o male admitted 05/15/17 for medically managed withdrawal/detox from Opiates, Benzodiazapines and ETOH. Originally room found empty. Room appears cluttered, clothes laying on floor, bed covers messy, food laying about and hoarded. Once pt returned he appears, sounds, and moves much older than stated age. Demanding, needy, manic, euphoric behavior. Pt on 1:1 observation with new [employer] after filing complaint on former [employer] INST[employer]ER. Observed packing and unpacking bags looking for things and preparing for d/c 05/21/17. Difficult to redirect pt. Will continue to monitor and promptly attend to all pt needs
[2017-05-20 20:00] VITALS: BP_SYST 141; BP_SYST 157; BP_DIAS 111; BP_DIAS 70
[2017-05-20] MEDS: METHYL SALICYLATE/MENTHOL CREAM 28 GM TUBE TOP PRN (20:45)
[2017-05-20] MEDS: HYDROXYZINE PAMOATE 25 MG CAPSULE PO PRN (20:53)
--- NOTE | 2017-05-20 20:53 | NUR ---
PRN Meds Ronnie Ruvalcaba Ultra Cream topical applied to bilateral lower legs Toradol 30mg IM to left deltoid for right mouth and back, hip, leg pain Peridex mouthwast swish and spit Vistaril 25mg PO for agitation/anxiety Will continue to monitor and reassess IM meds in 30 minutes, PO meds in 1 hour, promptly attending to all pt needs
--- NOTE | 2017-05-20 21:00 | NUR ---
Dr isacc Oncology MD visit to assess right mouth/mandibular lump. Pt examined, IV antibiotics discussed (requested by pt) as well as U/S of neck/mandible for the am ordered. Orders for Zosyn 3.375g IV q6h also placed and PIV started, 22g in RAC first attempt.
[2017-05-20] MEDS ORDERED: PIPERACILLIN/TAZOBACTAM/D5W 50 ML IV SCH (21:15)
--- NOTE | 2017-05-20 21:23 | NUR ---
PRN Med Reassessment Toradol 30mg IM given 30 minutes prior with pain rating 5/10. Currently pt rates pain as 3/10, refuses other alternatives prefering "to wait and see". Will continue to monitor and reassess PO meds in 30 minutes, promptly attending to all pt needs
--- NOTE | 2017-05-20 21:53 | NUR ---
PRN Med Reassessment Ronnie Ruvalcaba Ultra Cream-per patient effective, pain in legs improved, pt unable to quantify Peridex mouth wash-per patient effective, pt unable to quantify Vistaril 25mg PO, pt still appears and behaves agitated, manic, euphoric. Med ineffective. Will continue to monitor and assess, promptly attending to all pt needs
[2017-05-20] MEDS: PIPERACILLIN SODIUM/TAZOBACTAM 3.375 G in IV DEXTROSE 5% 50 ML IV SCH (21:57)
--- NOTE | 2017-05-20 22:35 | NUR ---
PRN Med Tylenol 650mg PO for generalized and right mouth pain. Will continue to monitor and reassess in 1 hour, promptly attending to all pt needs
--- NOTE | 2017-05-20 22:35 | NUR ---
PRN Med Pt c/o generalized pain, 05/18, requesting Tylenol 650mg PO.Will continue to monitor and reassess in 1 hour, promptly attending to all pt needs.
--- NOTE | 2017-05-20 23:35 | NUR ---
PRN Med Reassessment Tylenol 650 mg PO given for generalized and right mouth pain 4/10. Pt reports pain decreased, 2/10, med effective. Will continue to monitor and promptly attend to all pt needs
--- NOTE | 2017-05-21 | NUR ---
VS's COWS/CIWA Deferred Midnight VS's, COWS/CIWA deferred r/t Pt sleeping/refusal. RR 14, even and non-labored. Will continue to monitor, promptly attending to all pt needs.
[2017-05-21] MEDS: PIPERACILLIN SODIUM/TAZOBACTAM 3.375 G in IV DEXTROSE 5% 50 ML IV SCH ×4 (01:11→17:38)
--- NOTE | 2017-05-21 04:00 | NUR ---
VS's COWS/CIWA Deferred 0400 VS's, COWS/CIWA deferred r/t Pt sleeping/refusal. RR 14, even and non-labored. Will continue to monitor, promptly attending to all pt needs.
[2017-05-21] MEDS: METHYL SALICYLATE/MENTHOL CREAM 28 GM TUBE TOP PRN (06:05)
--- NOTE | 2017-05-21 06:51 | NUR ---
End of Shift4 Pt is a 56 y/o male admitted 05/15/17 for medically managed withdrawal/detox from Opiates, Benzodiazapines and ETOH. During evening pt received numerous PRNs: Ronnie Ruvalcaba Ultra Cream, Vistaril 25mg PO, Tylenol 650mg PO, Peridex mouth wash, Toradol 30mg IM. Round by Oncology MD made with Zosyn 3.375g IV (3 doses this shift) and U/S of neck and mandible for am being ordered. Ronnie Ruvalcaba Ultra Cream applied to bilateral lower legs 0600. Pt remains needy and demanding, behavior while awake manic and euphoric, with thought processes being flight of ideas and ongoing boundary setting. Pt hoarding food. Will continue to monitor pt until after giving am endorsement and promptly attend to all pt needs.
--- NOTE | 2017-05-21 07:15 | NUR ---
Late Med Cabozantinib 60mg PO not available for 0600, Pharmacy called [phone] and med sent immediately and administered.
[2017-05-21] MEDS: CABOZANTINIB 60 MG PO SCH (07:17)
--- NOTE | 2017-05-21 07:30 | NUR ---
START OF SHIFT Rcvd endorse from ongoing nurse, client is in room, he is a/o x4. He presents with anxious mood, agitated, flat affect, and tremors felt not observed. Client reports generalized body aches, pain on R side of face and neck (Client is schedule for US of the neck this am), abdominal cramps, and fatigue. VTE 3, client is on Lovenox 40mg SQ. Client has a walker at bedside. Client is on a 1:1 sitter for unsteady gait. Mobilize only via W/C. Encourage client to increase PO fluid as tolerated to maintain hydration. Encourage client to attend group therapy to learn skills to maintain sober. PRN administered overnight, see eMAR. Client slept 5 hrs. Last COWS 5/CIWA 5 @ 1999. Call light within reach.
[2017-05-21 08:09] VITALS: BP 139/80
[2017-05-21] MEDS: THIAMINE HCL 100 MG TABLET PO SCH (08:16)
[2017-05-21] MEDS: GABAPENTIN 300 MG CAPSULE PO SCH ×3 (08:16→21:17)
[2017-05-21] MEDS: DICYCLOMINE HCL 20 MG TABLET PO SCH ×3 (08:16→21:18)
[2017-05-21] MEDS: LACTOBACILLUS RHAMNOSUS GG 1 EACH CAPSULE PO SCH (08:16)
[2017-05-21] MEDS: MULTIVITAMINS,THERAPEUTIC TABLET PO SCH (08:16)
[2017-05-21] MEDS: FOLIC ACID 1 MG TABLET PO SCH (08:16)
[2017-05-21] MEDS: BACLOFEN 10 MG TABLET PO SCH ×3 (08:16→21:17)
[2017-05-21] MEDS: NEOMY/BACITRAC/POLYMI OINT 28.35 GM TUBE TOP SCH ×2 (08:17→16:59)
[2017-05-21] MEDS: ENOXAPARIN SODIUM 40 MG/0.4 ML DISP.SYRIN SQ SCH (08:18)
[2017-05-21] MEDS: KETOROLAC TROMETHAMINE 30 MG INJ IM PRN ×2 (08:21→17:48)
--- NOTE | 2017-05-21 08:21 | NUR ---
PRN Toradol 30mg IM for pain on R side of face and neck 09/17.
--- NOTE | 2017-05-21 08:51 | NUR ---
Reassess PRN Toradol 30mg, client reporst relief from pain on R side of face and neck 0/10.
[2017-05-21 12:46] VITALS: BP 140/80
[2017-05-21] MEDS: ACETAMINOPHEN 325 MG TABLET PO PRN (12:49)
--- NOTE | 2017-05-21 12:49 | NUR ---
PRN Tylenol 650mg PO for pain on R side of face and neck 11/17.
--- NOTE | 2017-05-21 13:49 | NUR ---
Reassess PRN Tylenol 650mg, client reports relief from pain PO for pain on R side of face and neck 05/18, client redlines Motrin at this time, stating, "It does not help me much, I would rather wait for another dose of Toradol."
[2017-05-21] MEDS ORDERED: IOHEXOL 300MG/ML 100 ML INFUS..BTL ONE (14:32)
[2017-05-21] MEDS ORDERED: IV NORMAL SALINE 100 ML ONE (14:32)
--- NOTE | 2017-05-21 15:50 | NUR ---
Client transported to radiology department via w/c for CT neck with contrast. 1:1 sitter with client.
[2017-05-21 16:55] VITALS: BP 127/73
--- NOTE | 2017-05-21 16:55 | NUR ---
Client back in his room form radiology department.
--- NOTE | 2017-05-21 17:48 | NUR ---
PRN Toradol 30mg IM to L deltoid for pain on R side of face and neck 09/17.
--- NOTE | 2017-05-21 18:18 | NUR ---
Reassess PRN Toradol 30mg, client report relief from pain on R side of face and neck 0/10.
--- NOTE | 2017-05-21 19:20 | NUR ---
END OF SHIFT Endorse to incoming nurse, client is in room, he is a/o x 4. He continues to present with anxious mood, flat affect, decreased appetite, restless legs, and fatigue. Client is on a 1:1 sitter for unsteady gait. Mobilize only via W/C. Adequate PO fluid intake 1805mL, void x 3, stool x 1. US of neck and CT of neck with contrast completed. Client is schedule for discharge to [facility] for ENT consult. Client has a hep lock 20G R AC. On antibiotic therapy Zosyn see eMAR. Consumes 50% of meals. Client was compliant with group therapy. PRN administered and noted per protocol, see eMAR. Last COWS 3/HELLENWA 3 @ 1600. Call light within reach.
--- NOTE | 2017-05-21 20:00 | NUR ---
Start of Shift Pt is a 56 year old male admitted for Opiate dependence, reported use of Hydromorphine, Diazepam and alcohol. Subutex taper, PRN Ativan completed. At time of assessment, pt is AAOx3, VS WNL, pt presents in room with 1:1 for safety. Pending transfer to [facility] @ [place]. Safety measures in place, will continue to monitor.
--- NOTE | 2017-05-21 20:50 | NUR ---
PATIENT TRANSFER Pt is in stable condition, VS WNL, skin is intact, all discharge paper work signed/dated, report given to Hospital of transfer location, report given to [facility] transfer. Personal belongings and prescriptions with patient. pt left building on 05/21/2017 at 2050.
== END 2017-05-21 21:58 | disposition short-term general hospital (02) | DRG 895 ==
LOC: SRC 15:17
PROVIDERS: ADMIT Internal Medicine; ATTEND Internal Medicine
PROC: HZ2ZZZZ Detoxification Services for Substance Abuse Treatment (ICD-10-PCS; principal; 2017-05-15)
PROC: HZ31ZZZ Individual Counseling for Substance Abuse Treatment, Behavioral (ICD-10-PCS; 2017-05-18)
PROC: HZ41ZZZ Group Counseling for Substance Abuse Treatment, Behavioral (ICD-10-PCS; 2017-05-18)
DX: F11.23 Opioid dependence with withdrawal (principal); C79.51 Secondary malignant neoplasm of bone; D68.59 Other primary thrombophilia; F13.230 Sedative, hypnotic or anxiolytic dependence with withdrawal, uncomplicated; F10.20 Alcohol dependence, uncomplicated; Z85.528 Personal history of other malignant neoplasm of kidney; R22.1 Localized swelling, mass and lump, neck; F41.9 Anxiety disorder, unspecified; G89.4 Chronic pain syndrome; Z90.5 Acquired absence of kidney; Z79.899 Other long term (current) drug therapy; R04.0 Epistaxis; R26.81 Unsteadiness on feet; K04.7 Periapical abscess without sinus; D64.9 Anemia, unspecified; Z86.711 Personal history of pulmonary embolism; Z79.02 Long term (current) use of antithrombotics/antiplatelets; G89.3 Neoplasm related pain (acute) (chronic); Z82.3 Family history of stroke; Z81.1 Family history of alcohol abuse and dependence; F32.9 Major depressive disorder, single episode, unspecified; Z91.89 Other specified personal risk factors, not elsewhere classified
CPT/HCPCS: 36415; 70030-TC; 80307; 80346; 80361; 83735; 85025; 85730; 86580; 86592; 86705; 86803; 87340; 87806; A4663; A9150; G0480; J1650; J1885; J2543; J3490; J3535; J7060; Q0162; Q9967

== ENCOUNTER → 2017-05-19 | Outpatient (CLI) | payer BC, OTHER ==
[~2017-05-19] MED LIST: CLON0.1T14 PO; DICY20TA28 PO; DOCU250C14 PO; ENOX40DI SQ; GABA-534 PO; HYDR-3895 PO; IBUP-1955 PO; IOHEXOL 350 100 ML INFUS..BTL ONE; IV NORMAL SALINE 100 ML ONE; LACT10SO PO; LEVO5TAB29 PO; METH-406 PO; NORMAL SALINE FLUSH 10 ML DISP.SYRIN ONE
== END | disposition home or self-care (01) ==
LOC: RAD 00:49
PROVIDERS: ATTEND Internal Medicine Hematology & Oncology
DX: I31.1 Chronic constrictive pericarditis (principal)
CPT/HCPCS: 71275; J3490; Q9967

== ENCOUNTER 2017-05-21 14:04 | Outpatient (CLI) | payer BC, OTHER ==
[~2017-05-21 14:04] MED LIST changes: -IOHEXOL 350 100 ML INFUS..BTL ONE; -IV NORMAL SALINE 100 ML ONE; -NORMAL SALINE FLUSH 10 ML DISP.SYRIN ONE
== END 2017-05-21 23:59 | disposition home or self-care (01) ==
LOC: RAD 14:04
PROVIDERS: ATTEND Internal Medicine
DX: M50.323 Other cervical disc degeneration at C6-C7 level (principal); J32.2 Chronic ethmoidal sinusitis; J32.0 Chronic maxillary sinusitis
CPT/HCPCS: 70491